=== PATIENT | female | born 1995 | race Caucasian/White ===

== ENCOUNTER 2018-08-19 19:14 | Emergency (ER) | payer OTHER ==
[2018-08-19] MEDS ORDERED: METOCLOPRAMIDE 10 MG/2mL INJ ONE (20:28)
[2018-08-19] MEDS ORDERED: NA CHLORIDE 0.9% 1,000 ML ONE (20:28)
--- NOTE | 2018-08-19 21:46 | ER ---
Nurse's Notes [facility] Name: Dominik Hall Age: 23 yrs Sex: Female : 1995 Arrival Date: 08/19/2018 Time: 19:17 Bed 23 Private MD: Romel Macedo Diagnosis: Headache Presentation: 08/19 19:30 Presenting complaint: Patient states: "I have a horrible headache. I know there is only jd3 certain things you can give me because I am 17 weeks , but I am having a lot of pain. It hurts worse and adds more pressure to turn my head or stand up or sit down. It is sensitive to light and making very nauseous.". Transition of care: patient was not received from another setting of care. Onset of symptoms was August 19, 2018. Risk Assessment: Do you want to hurt yourself or someone else? Patient reports no desire to harm self or others. Initial Sepsis Screen: Does the patient meet any 2 criteria? No. Patient's initial sepsis screen is negative. Does the patient have a suspected source of infection? No. Patient's initial sepsis screen is negative. Care prior to arrival: None. 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 - Social history:: Smoking status: Patient/guardian denies using tobacco. - Ebola Screening: : Patient negative for fever greater than or equal to 101.5 degrees Fahrenheit, and additional compatible Ebola Virus Disease symptoms. Screenin:35 Abuse screen: Denies threats or abuse. Denies injuries from another. Nutritional ca1 screening: No deficits noted. Tuberculosis screening: No symptoms or risk factors identified. Fall Risk None identified. Assessment: 19:35 General: Appears in no apparent distress. uncomfortable, Behavior is calm, cooperative, ca1 appropriate for age. Pain: Complains of pain in face and scalp Pain currently is 9 out of 10 on a pain scale. Pain began 2-3 days ago. Neuro: Level of Consciousness is awake, alert, obeys commands, Oriented to person, place, time, situation, Reports blurred vision headache in left photophobia. Cardiovascular: Heart tones S1 S2 present Capillary refill < 3 seconds Patient's skin is warm and dry. Respiratory: Airway is patent Respiratory effort is even, unlabored, Respiratory pattern is regular, symmetrical, Breath sounds are clear bilaterally. GI: Abdomen is round non-distended, Bowel sounds present X 4 quads. Abd is soft and non tender X 4 quads. : No deficits noted. No signs and/or symptoms were reported regarding the genitourinary system. EENT: No deficits noted. No signs and/or symptoms were reported regarding the EENT system. Derm: Skin is intact, is healthy with good turgor, Skin is pink, warm \\T\\ dry. Musculoskeletal: Circulation, motion, and sensation intact. Capillary refill < 3 seconds. 20:31 Reassessment: Patient appears in no apparent distress at this time. Patient and/or ca1 family updated on plan of care and expected duration. Pain level reassessed. Patient is alert, oriented x 3, equal unlabored respirations, skin warm/dry/pink. 21:24 Reassessment: Patient appears in no apparent distress at this time. Patient is alert, ca1 oriented x 3, equal unlabored respirations, skin warm/dry/pink. Ambulated to restroom. Steady gait, no complaints of dizziness at this time Patient states feeling better. 21:56 Reassessment: Patient appears in no apparent distress at this time. Patient is alert, ca1 oriented x 3, equal unlabored respirations, skin warm/dry/pink. Patient states feeling better. Vital Signs: 19:34 BP 129 / 83; Pulse 90; Resp 17 S; Temp 98.3(O); Pulse Ox 99% on R/A; Weight 104.33 kg jd3 (R); Height 5 ft. 6 in. (167.64 cm) (R); Pain 9/10; 20:31 BP 124 / 71; Pulse 83; Resp 17 S; Temp 98.1(O); Pulse Ox 99% on R/A; ca1 21:31 BP 124 / 84; Pulse 81; Resp 17 S; Temp 98.2(O); Pulse Ox 100% on R/A; ca1 19:34 Body Mass Index 37.12 (104.33 kg, 167.64 cm) jd3 ED Course: 19:17 Patient arrived in ED. es 19:18 Romel Macedo DO is Private Physician. es 19:33 Triage completed. jd3 19:35 Arm band placed on. jd3 19:35 Patient has correct armband on for positive identification. Placed in gown. Bed in low ca1 position. Call light in reach. Side rails up X 1. Pulse ox on. NIBP on. Door closed. Noise minimized. Lights dimmed. Warm blanket given. 19:40 Rivka Gonzales RN is Primary Nurse. ca1 19:42 Rosendo Bowen PA is PHCP. [facility] 19:42 Cole Ye MD is Attending Physician. [facility] 20:25 No provider procedures requiring assistance completed. Inserted saline lock: 20 gauge ca1 in right antecubital area, using aseptic technique. 21:45 Sunil Strong MD is Referral Physician. [facility] 21:57 IV discontinued, intact, bleeding controlled, No redness/swelling at site. Pressure ca1 dressing applied. Administered Medications: 20:26 Drug: NS 0.9% 1000 ml Route: IV; Rate: 1 bolus; Site: right antecubital; ca1 21:40 Follow up: Urine output 290 ml; IV Status: Completed infusion ca1 20:26 Drug: Reglan 10 mg Route: IVP; Site: right antecubital; ca1 20:40 Follow up: Response: No adverse reaction; Marked relief of symptoms ca1 Output: 21:40 Urine: 290ml; Total: 290ml. ca1 Outcome: 21:45 Discharge ordered by . [facility] 21:57 Discharged to home ambulatory. ca1 21:57 Condition: stable 21:57 Discharge instructions given to patient, Instructed on discharge instructions, follow up and referral plans. Demonstrated understanding of instructions, follow-up care. 21:58 Patient left the ED. ca1 Signatures: Rosendo Bowen PA PA jmm Salyer, Edna es Davies, Jonathon, RN RN j Rivka Gonzales RN RN ca1
--- NOTE | 2018-08-19 21:46 | EDPHYS ---
Physician Documentation [facility] Name: Dominik Hall Age: 23 yrs Sex: Female : 1995 Arrival Date: 08/19/2018 Time: 19:17 Bed 23 Private MD: Romel Macedo Physician Cole Ye HPI: 08/19 20:04 This 23 yrs old Female presents to ER via Ambulatory with complaints of HEAD jmm PRESSURE. 20:04 The patient complains of pain to the forehead, right eye and left eye. The patient jmm describes the headache as aching. Onset: The symptoms/episode began/occurred gradually, 2 day(s) ago. Associated signs and symptoms: Pertinent positives: nausea, Photophobia Pertinent negatives: fever. This is a 23 year old female with a history of asthma that present to the ED with complaints of a frontal headache described as aching and pressure. Patient complains of nausea and photophobia. Patient has had similar episodes in the past. Headache is gradual. Patient denies fever. Patient has taken otc medication with no relief. . 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 - Social history:: Smoking status: Patient/guardian denies using tobacco. - Ebola Screening: : Patient negative for fever greater than or equal to 101.5 degrees Fahrenheit, and additional compatible Ebola Virus Disease symptoms. ROS: 20:04 Constitutional: Negative for fever, chills, and weight loss, Cardiovascular: Negative jmm for chest pain, palpitations, and edema, Respiratory: Negative for shortness of breath, cough, wheezing, and pleuritic chest pain. 20:04 Abdomen/GI: Positive for nausea. 20:04 Neuro: Positive for headache. 20:04 All other systems are negative. Exam: 20:04 Head/Face: atraumatic. Eyes: EOMI, no conjunctival erythema appreciated ENT: Moist jmm Mucus Membranes Neck: Trachea midline, Supple Chest/axilla: Normal chest wall appearance and motion. Cardiovascular: Regular rate and rhythm. No edema appreciated Respiratory: Normal respirations, no respiratory distress appreciated Abdomen/GI: Non distended, soft Back: Normal ROM Skin: General appearance color normal MS/ Extremity: Moves all extremities, no obvious deformities appreciated, no edema noted to the lower extremities Neuro: Awake and alert, normal gait Psych: Behavior is normal, Mood is normal, Patient is cooperative and pleasant 20:04 Constitutional: The patient appears alert, awake, uncomfortable. Vital Signs: 19:34 BP 129 / 83; Pulse 90; Resp 17 S; Temp 98.3(O); Pulse Ox 99% on R/A; Weight 104.33 kg jd3 (R); Height 5 ft. 6 in. (167.64 cm) (R); Pain 9/10; 20:31 BP 124 / 71; Pulse 83; Resp 17 S; Temp 98.1(O); Pulse Ox 99% on R/A; ca1 21:31 BP 124 / 84; Pulse 81; Resp 17 S; Temp 98.2(O); Pulse Ox 100% on R/A; ca1 19:34 Body Mass Index 37.12 (104.33 kg, 167.64 cm) jd3 MDM: 20:04 Patient medically screened. tanesha 21:43 Data reviewed: vital signs, nurses notes. Counseling: I had a detailed discussion with tanesha the patient and/or guardian regarding: the historical points, exam findings, and any diagnostic results supporting the discharge/admit diagnosis, the need for outpatient follow up, to return to the emergency department if symptoms worsen or persist or if there are any questions or concerns that arise at home. ED course: Headache is relieved in the ED. Patient is alert and non toxic in appearance in the ED. I do not suspect SAH or meningitis. Patient is advised to follow up with Neurology for further evaluation and otherwise given strict return precautions. Patient understood and agrees with the plan of care. . 08/19 20:11 Order name: IV Saline Lock; Complete Time: 20:25 ca1 Administered Medications: 20:26 Drug: NS 0.9% 1000 ml Route: IV; Rate: 1 bolus; Site: right antecubital; ca1 21:40 Follow up: Urine output 290 ml; IV Status: Completed infusion ca1 20:26 Drug: Reglan 10 mg Route: IVP; Site: right antecubital; ca1 20:40 Follow up: Response: No adverse reaction; Marked relief of symptoms ca1 Disposition: 08/19/18 21:45 Discharged to Home. Impression: Headache. - Condition is Stable. - Discharge Instructions: Migraine Headache. - Medication Reconciliation Form, Thank You Letter, Antibiotic Education, Prescription Opioid Use form. - Follow up: Sunil Strong MD; When: 2 - 3 days; Reason: Recheck today's complaints, Continuance of care, Re-evaluation by your physician. Addendum: 08/22/2018 07:03 Co-signature as Attending Physician, Cole Ye MD I agree with the assessment and k dr plan of care. Signatures: Cole Ye MD MD kdr Mickail, Joel, PA PA jmm Davies, Jonathon, RN RN jd3 Rivka Gonzales RN RN ca1 Corrections: (The following items were deleted from the chart) 08/19 21:58 21:45 08/19/2018 21:45 Discharged to Home. Impression: Headache. Condition is Stable. ca1 Forms are Medication Reconciliation Form, Thank You Letter, Antibiotic Education, Prescription Opioid Use. Follow up: Sunil Strong; When: 2 - 3 days; Reason: Recheck today's complaints, Continuance of care, Re-evaluation by your physician. scott
[2018-08-19 23:22] VITALS: BP 124/84; TEMP 98.2; O2SAT 100
== END 2018-08-19 21:58 | disposition home or self-care (01) ==
LOC: ER 19:14
DX: O26.892 Other specified pregnancy related conditions, second trimester (principal); R51 Headache; F90.9 Attention-deficit hyperactivity disorder, unspecified type; Z3A.17 17 weeks gestation of pregnancy
CPT/HCPCS: 96361; 96374; 99284; J2765; J7030

== ENCOUNTER 2019-02-23 21:51 | Emergency (ER) | payer OTHER ==
--- OUTSIDE RECORDS SUMMARY | 2019-02-23 21:56 | XMS REPORT | Summary of Care ---
:1995 Author Organization [facility] Address [address] [place] [id number] Care Team Providers Name Role Phone [facility] Encounter Details Date Type Department Care Team Description 02/14/2019 Encounter Allergies Active Allergy Reactions Severity Noted Date Comments Adhesive Rash Low 01/19/2019 Skin reaction to adhesive from epidural tape documented as of this encounter (statuses as of 02/14/2019) Medications Medication Sig Dispensed Refills Start Date End Date Status buPROPion XL Take 1 tablet by 15 tablet 0 01/16/2019 Active (WELLBUTRIN XL) 300 mouth daily. mg 24 hr tabletIndications: Other depression vitamin w/FA Take 1 tablet by 100 tablet 3 01/20/2019 Active tabletIndications: mouth daily. Status post tubal ligation docusate calcium 240 Take 1 capsule by 60 capsule 1 01/20/2019 Active mg mouth once daily capsuleIndications: as needed for Status post tubal Constipation. ligation ferrous sulfate 325 Take 1 tablet by 60 tablet 2 01/20/2019 Active mg (65 mg iron) mouth 2 (two) tabletIndications: times daily. Status post tubal ligation ibuprofen 600 mg Take 1 tablet by 60 tablet 1 01/20/2019 Active tabletIndications: mouth every 6 Status post tubal (six) hours as ligation needed for Pain (scale 1-3) or Pain (scale 4-6) (Pain). Take with food or milk. HYDROcodone-acetamino Take 1 tablet by 20 tablet 0 01/20/2019 Active phen 5-325 mg mouth every 6 tabletIndications: (six) hours as Status post tubal needed for Pain ligation (scale 7-10). documented as of this encounter (statuses as of 02/14/2019) Active Problems Problem Noted Date care and examination of lactating mother 02/09/2019 History of tubal ligation 01/20/2019 History of asthma 01/20/2019 Anemia of mother in , antepartum 01/05/2019 Other depression 07/06/2018 Obesity in 06/08/2018 documented as of this encounter (statuses as of 02/14/2019) Resolved Problems Problem Noted Date Resolved Date (spontaneous vaginal delivery) 01/20/2019 02/09/2019 Single live 01/20/2019 02/09/2019 38 weeks gestation of 01/18/2019 02/09/2019 Uterine contractions during 01/03/2019 02/09/2019 contractions 01/01/2019 02/09/2019 Vaginal bleeding 01/01/2019 02/09/2019 36 weeks gestation of 01/01/2019 02/09/2019 Pain of round ligament affecting , antepartum 10/26/2018 02/09/2019 Abnormal maternal glucose tolerance, antepartum 10/25/2018 02/09/2019 Overview: Passed 3hr gtt Echogenic bowel of fetus 10/05/2018 02/09/2019 Overview: Echogenic bowel was present. A detailed anatomy scn will be scheduled. 10/21/18 Supervision of high-risk 06/08/2018 02/09/2019 Multiparity 06/08/2018 02/09/2019 Obesity (BMI 30-39.9) 12/10/2016 06/08/2018 documented as of this encounter (statuses as of 02/14/2019) Immunizations Name Administration Dates Next Due Tdap 11/23/2018 documented as of this encounter Social History Tobacco Use Types Packs/Day Years Used Date Never Smoker Smokeless Tobacco: Never Used Alcohol Use Drinks/Week oz/Week Comments No Sex Assigned at Date Recorded Not on file Job Start Date Occupation Industry Not on file Not on file Not on file Travel History Travel Start Travel End No recent travel history available. documented as of this encounter Last Filed Vital Signs Not on filedocumented in this encounter Plan of Treatment Date Type Specialty Care Team Description 03/02/2019 Office Visit [facility] Jessy Greer, WHCNP [address] [place] [address] [phone] Health Maintenance Due Date Last Done Comments PAP SMEAR 03/17/2019 Postponed from 2017 ( or ) HPV VACCINES (1 - Female 01/02/2020 Postponed from 05/30/2011 3-dose series) ( or ) CHLAMYDIA SCREENING 01/05/2020 01/04/2019, 01/01/2019, 07/06/2018 MENINGOCOCCAL B VACCINES (1 01/11/2020 Postponed from 2006 of 2 - Risk Bexsero 2-dose (Refused) series) INFLUENZA VACCINE (#1) 2020 Postponed from 11/20/2018 (Refused) DTaP,Tdap,and Td Vaccines (2 11/23/2028 11/23/2018 - Td) MENINGOCOCCAL VACCINE Aged Out No longer eligible based on patient's age to complete this topic PNEUMOCOCCAL 0-64 YEARS Aged Out No longer eligible based COMBINED SERIES on patient's age to complete this topic documented as of this encounter Results Not on filedocumented in this encounter Insurance Payer Benefit Plan / Subscriber ID Effective Phone Address Type Group [facility] [employer] xxxxxxxxx 2018-[address] Medicaid HEALTH CHOICE - HEALTH CHOICE nt [id number] MANAGED MEDICAID [place], [place] [phone] documented as of this encounter Advance Directives Name Relationship Healthcare Agent Communication Relationship Delvin Hauser Life Partner Primary healthcare agent
[2019-02-23] MEDS ORDERED: NA CHLORIDE 0.9% 1,000 ML ONE (23:02)
[2019-02-23] MEDS ORDERED: KETOROLAC 30 MG/ML INJ ONE (23:02)
[2019-02-23 23:03] LABS: Absolute Lymphocytes (CBC) 3.7 K/uL (0.7-4.9); Basophils % 0.5 % (0-1.3); MPV 7.9 fL (7.6-11.3); RBC Red Blood Cell Count 4.26 M/uL (3.86-4.86)
[2019-02-23 23:06] LABS: Urine Blood 2+ (NEG); Urine Glucose NEGATIVE (NEG); Urine Protein NEGATIVE (NEG); Urine Specific Gravity >1.030 (1.005-1.030)
[2019-02-23 23:30] LABS: ALT/SGPT 50 U/L (12-78); AST/SGOT 27 U/L (15-37); Albumin 3.4 g/dL (3.4-5.0); Alkaline Phosphatase 80 U/L (45-117); BUN Blood Urea Nitrogen 10 mg/dL (7-18); Bicarbonate 30 mmol/L (21-32); Bilirubin Direct < 0.1 mg/dL (0-0.2); Bilirubin Total 0.2 mg/dL (0.2-1.0); Glucose Level 92 mg/dL (74-106); Lipase 123 U/L (73-393); Potassium 4.1 mmol/L (3.5-5.1); Protein, Total 7.5 g/dL (6.4-8.2); Sodium Level 144 mmol/L (136-145)
[2019-02-23] MEDS ORDERED: FENTANYL CITR 100 MCG/2 ML ONE (23:54)
--- NOTE | 2019-02-24 02:40 | ER ---
Nurse's Notes [facility] Name: Dominik Hall Age: 23 yrs Sex: Female : 1995 Arrival Date: 02/23/2019 Time: 21:52 Bed 6 Private MD: Diagnosis: Cellulitis of abdominal wall Presentation: 02/23 21:58 Presenting complaint: Patient states: I had a tubal on Jan 19 and today noticed aa1 redness and swelling to the incision site. Transition of care: patient was not received from another setting of care. Onset of symptoms was February 23, 2019. Risk Assessment: Do you want to hurt yourself or someone else? Patient reports no desire to harm self or others. Initial Sepsis Screen: Does the patient meet any 2 criteria? No. Patient's initial sepsis screen is negative. Does the patient have a suspected source of infection? No. Patient's initial sepsis screen is negative. Care prior to arrival: None. 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 - Social history:: Smoking status: Patient/guardian denies using tobacco, never smoked, Patient uses alcohol, but reports only rare drinking. - Ebola Screening: : Patient negative for fever greater than or equal to 101.5 degrees Fahrenheit, and additional compatible Ebola Virus Disease symptoms Patient denies exposure to infectious person Patient denies travel to an Ebola-affected area in the 21 days before illness onset. Screenin:34 Abuse screen: Denies threats or abuse. Denies injuries from another. Nutritional ak1 screening: No deficits noted. Tuberculosis screening: No symptoms or risk factors identified. Fall Risk None identified. Assessment: 22:35 General: Appears in no apparent distress. Behavior is calm, cooperative, appropriate ak1 for age. Pain: Complains of pain in umbilical area Quality of pain is described as sharp, throbbing, Pain began 1 day ago. Neuro: Level of Consciousness is awake, alert, obeys commands, Oriented to person, place, time, situation, Decal Maker are equal bilaterally Moves all extremities. Full function Gait is steady, Speech is normal. Cardiovascular: No deficits noted. Respiratory: Airway is patent Respiratory effort is even, unlabored, Respiratory pattern is regular, Breath sounds are clear bilaterally. GI: Abdomen is round non-distended, Bowel sounds present X 4 quads. pt reports pain at incision site. pt 5 weeks s/p tubal ligation sx at [facility]. area at umbilicus is reddened. : No signs and/or symptoms were reported regarding the genitourinary system. EENT: No signs and/or symptoms were reported regarding the EENT system. Derm: No signs and/or symptoms reported regarding the dermatologic system. Musculoskeletal: No signs and/or symptoms reported regarding the musculoskeletal system. 22:38 Reassessment: pt stated she has an abd hernia at the same location as the pain. pt ak1 stated she noticed the pain this morning and redness later in the afternoon. 22:39 Reassessment: pt states she is breast feeding at home. ak1 02/24 00:21 Reassessment: Patient appears in no apparent distress at this time. No changes from ak1 previously documented assessment. 02:00 Reassessment: Patient appears in no apparent distress at this time. Patient is alert, rr5 oriented x 3, equal unlabored respirations, skin warm/dry/pink. no complaints made, awaiting for CT result. 03:09 Reassessment: Patient appears in no apparent distress at this time. Patient is alert, rr5 oriented x 3, equal unlabored respirations, skin warm/dry/pink. discharge instruction given and explained without complaints made. Vital Signs: 02/23 22:00 BP 148 / 88; Pulse 75; Resp 16; Temp 98.2; Pulse Ox 99% ; Weight 103.42 kg; Height 5 aa1 ft. 6 in. (167.64 cm); Pain 4/10; 22:34 BP 133 / 74; Pulse 83; Resp 16; Temp 98.6(O); Pulse Ox 100% on R/A; Pain 4/10; ak1 02/24 00:21 BP 106 / 66; Pulse 80; Resp 16; Temp 98.5; Pulse Ox 100% on R/A; ak1 00:58 BP 120 / 67; Pulse 84; Resp 16; Pulse Ox 98% on R/A; ak1 02:00 BP 112 / 70; Pulse 71; Resp 19; Pulse Ox 98% on R/A; rr5 03:09 BP 106 / 61; Pulse 69; Resp 16; Temp 98.5; Pulse Ox 99% ; rr5 12 22:00 Body Mass Index 36.80 (103.42 kg, 167.64 cm) aa1 ED Course: 02/23 21:52 Patient arrived in ED. as 21:59 Triage completed. aa1 22:02 Arm band placed on right wrist. aa1 22:27 Chayito Herron, RN is Primary Nurse. ak1 22:34 Patient has correct armband on for positive identification. Bed in low position. Call ak1 light in reach. Side rails up X 1. Pulse ox on. NIBP on. Warm blanket given. 22:37 Maria Eugenia Brice FNP-C is PHCP. snw 22:37 Wale Medeiros MD is Attending Physician. snw 23:00 Radiology exam delayed due to lab results not completed at this time. (BUN/Creatinine) nj test not completed at this time. 23:04 Initial lab(s) drawn, by ED staff, sent to lab. Inserted saline lock: 20 gauge in right ak1 antecubital area, using aseptic technique. ,using aseptic technique. placed by Zuleyka Blood collected. 02/24 01:42 CT Abd/Pelvis - IV Contrast Only In Process Unspecified. EDMS Administered Medications: 02/23 23:03 Drug: TORadol 30 mg Route: IVP; Site: right antecubital; nc1 02/24 01:18 Follow up: Response: No adverse reaction [facility] 02/23 23:04 Drug: NS 0.9% 1000 ml Route: IV; Rate: 1 bolus; Site: right antecubital; ak1 02/24 00:10 Follow up: IV Status: Completed infusion; IV Intake: 1000ml [facility] 02/23 23:54 Drug: fentaNYL (PF) 25 mcg {Note: rass 0.} Route: IVP; Site: right antecubital; rr5 02/24 01:18 Follow up: Response: No adverse reaction; Pain is decreased ak1 02:59 Not Given (other intervention used): Bactrim (160 mg-800 mg (DS) 1 tablet PO once snw 03:08 Drug: Clindamycin 300 mg Route: PO; rr5 03:08 Follow up: Response: Medication administered at discharge. rr5 Intake: 00:10 IV: 1000ml; Total: 1000ml. ak1 Outcome: 02:39 Discharge ordered by snw 03:11 Patient left the ED. rr5 Signatures: Dispatcher [employer] EDHannah Wang, RN RN aa1 Maria Eugenia Brice, PRINTING ROLLER POLISHER-C PRINTING ROLLER POLISHER-Radha Rodney Amber RN RN ak1 Kirt Saenz Raymond, RN RN rr5 Corrections: (The following items were deleted from the chart) 02/23 22:02 22:02 EKG completed in triage. Results shown to MD. aa1 aa1
--- NOTE | 2019-02-24 02:40 | EDPHYS ---
Physician Documentation [facility] Name: Dominik Hall Age: 23 yrs Sex: Female : 1995 Arrival Date: 02/23/2019 Time: 21:52 Bed 6 Private MD: ED Physician Wale Medeiros HPI: 02/24 01:28 This 23 yrs old Female presents to ER via Ambulatory with complaints of snw Abdominal Pain. 01:28 The patient presents with abdominal pain over tubal incision. Onset: The snw symptoms/episode began/occurred suddenly, 2 day(s) ago, and became worse and became persistent. The symptoms do not radiate. Associated signs and symptoms: Pertinent positives: mild erythema. The symptoms are described as burning. Severity of pain: At its worst the pain was moderate severe in the emergency department the pain is unchanged. The patient has not experienced similar symptoms in the past. It is unknown whether or not the patient has recently seen a physician. 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 - Social history:: Smoking status: Patient/guardian denies using tobacco, never smoked, Patient uses alcohol, but reports only rare drinking. - Ebola Screening: : Patient negative for fever greater than or equal to 101.5 degrees Fahrenheit, and additional compatible Ebola Virus Disease symptoms Patient denies exposure to infectious person Patient denies travel to an Ebola-affected area in the 21 days before illness onset. ROS: 23:53 Constitutional: Negative for fever, chills, and weight loss, Eyes: Negative for injury, snw pain, redness, and discharge, ENT: Negative for injury, pain, and discharge, Neck: Negative for injury, pain, and swelling, Cardiovascular: Negative for chest pain, palpitations, and edema, Respiratory: Negative for shortness of breath, cough, wheezing, and pleuritic chest pain, Abdomen/GI: positive for abdominal pain at tubal incision denies nausea, vomiting, diarrhea, and constipation, Back: Negative for injury and pain, : Negative for injury, bleeding, discharge, and swelling, MS/Extremity: Negative for injury and deformity, Neuro: Negative for headache, weakness, numbness, tingling, and seizure. 23:53 Skin: Positive for tender around tubal incision. Exam: 23:51 Constitutional: This is a well developed, well nourished patient who is awake, alert, snw and in no acute distress. Head/Face: Normocephalic, atraumatic. Eyes: Pupils equal round and reactive to light, extra-ocular motions intact. Lids and lashes normal. Conjunctiva and sclera are non-icteric and not injected. Cornea within normal limits. Periorbital areas with no swelling, redness, or edema. ENT: Nares patent. No nasal discharge, no septal abnormalities noted. Tympanic membranes are normal and external auditory canals are clear. Oropharynx with no redness, swelling, or masses, exudates, or evidence of obstruction, uvula midline. Mucous membranes moist. Neck: Trachea midline, no thyromegaly or masses palpated, and no cervical lymphadenopathy. Supple, full range of motion without nuchal rigidity, or vertebral point tenderness. No Meningismus. Chest/axilla: Normal chest wall appearance and motion. Nontender with no deformity. No lesions are appreciated. Cardiovascular: Regular rate and rhythm with a normal S1 and S2. No gallops, murmurs, or rubs. Normal PMI, no JVD. No pulse deficits. Respiratory: Lungs have equal breath sounds bilaterally, clear to auscultation and percussion. No rales, rhonchi or wheezes noted. No increased work of breathing, no retractions or nasal flaring. Back: No spinal tenderness. No costovertebral tenderness. Full range of motion. Skin: Warm, dry with normal turgor. Normal color with no rashes, no lesions, and no evidence of cellulitis. MS/ Extremity: Pulses equal, no cyanosis. Neurovascular intact. Full, normal range of motion. Neuro: Awake and alert, GCS 15, oriented to person, place, time, and situation. Cranial nerves II-XII grossly intact. Motor strength 5/5 in all extremities. Sensory grossly intact. Cerebellar exam normal. Normal gait. Psych: Awake, alert, with orientation to person, place and time. Behavior, mood, and affect are within normal limits. 23:51 Abdomen/GI: Inspection: abdomen appears normal, Bowel sounds: normal, Palpation: moderate abdominal tenderness, in all quadrants, in the superior to suprapubic area superior to 3 cm healed incision from tubal 5 weeks ago, faint erythema to skin at tender area. Vital Signs: 22:00 BP 148 / 88; Pulse 75; Resp 16; Temp 98.2; Pulse Ox 99% ; Weight 103.42 kg; Height 5 aa1 ft. 6 in. (167.64 cm); Pain 4/10; 22:34 BP 133 / 74; Pulse 83; Resp 16; Temp 98.6(O); Pulse Ox 100% on R/A; Pain 4/10; ak1 02/24 00:21 BP 106 / 66; Pulse 80; Resp 16; Temp 98.5; Pulse Ox 100% on R/A; ak1 00:58 BP 120 / 67; Pulse 84; Resp 16; Pulse Ox 98% on R/A; ak1 02:00 BP 112 / 70; Pulse 71; Resp 19; Pulse Ox 98% on R/A; rr5 03:09 BP 106 / 61; Pulse 69; Resp 16; Temp 98.5; Pulse Ox 99% ; rr5 02/23 22:00 Body Mass Index 36.80 (103.42 kg, 167.64 cm) aa1 MDM: 02/23 22:39 Patient medically screened. [facility] 02/24 01:27 Data reviewed: vital signs, nurses notes. Data interpreted: Pulse oximetry: on room air snw is 98 %. Interpretation: normal. Counseling: I had a detailed discussion with the patient and/or guardian regarding: the historical points, exam findings, and any diagnostic results supporting the discharge/admit diagnosis, lab results, radiology results, the need for outpatient follow up, to return to the emergency department if symptoms worsen or persist or if there are any questions or concerns that arise at home. Special discussion: Based on the history and exam findings, there is no indication for further emergent testing or inpatient evaluation. I discussed with the patient/guardian the need to see the primary care provider for further evaluation of the symptoms. 02/23 22:47 Order name: Basic Metabolic Panel; Complete Time: 23:38 aa1 02/23 22:47 Order name: CBC with Diff; Complete Time: 23:23 aa1 02/23 22:47 Order name: Creatinine for Radiology; Complete Time: 23:38 aa1 02/23 22:47 Order name: Hepatic Function; Complete Time: 23:38 aa02/23 22:47 Order name: Lipase; Complete Time: 23:38 aa1 02/23 23:00 Order name: Urine Dipstick--Ancillary (enter results); Complete Time: 23:07 [facility] 02/23 22:47 Order name: IV Saline Lock; Complete Time: 22:57 aa1 02/23 22:47 Order name: CT Abd/Pelvis - IV Contrast Only aa02/23 23:00 Order name: Urine --Ancillary (enter results); Complete Time: 23:07 [facility] 02/23 22:47 Order name: Labs collected and sent; Complete Time: 22:58 aa1 02/23 22:47 Order name: Urine Dipstick-Ancillary (obtain specimen); Complete Time: 22:57 aa 02/23 22:47 Order name: Urine Test (obtain specimen); Complete Time: 22:57 aa Administered Medications: 02/23 23:03 Drug: TORadol 30 mg Route: IVP; Site: right antecubital; ak1 02/24 01:18 Follow up: Response: No adverse reaction [facility] 02/23 23:04 Drug: NS 0.9% 1000 ml Route: IV; Rate: 1 bolus; Site: right antecubital; ak1 02/24 00:10 Follow up: IV Status: Completed infusion; IV Intake: 1000ml [facility] 02/23 23:54 Drug: fentaNYL (PF) 25 mcg {Note: rass 0.} Route: IVP; Site: right antecubital; rr5 02/24 01:18 Follow up: Response: No adverse reaction; Pain is decreased ak1 02:59 Not Given (other intervention used): Bactrim (160 mg-800 mg (DS) 1 tablet PO once snw 03:08 Drug: Clindamycin 300 mg Route: PO; rr5 03:08 Follow up: Response: Medication administered at discharge. rr5 Disposition: 07:40 Co-signature as Attending Physician, Wale Medeiros MD I agree with the assessment and jessica plan of care. Disposition: 02/24/19 02:39 Discharged to Home. Impression: Cellulitis of abdominal wall. - Condition is Stable. - Discharge Instructions: Cellulitis, Adult, Heat Therapy. - Prescriptions for Clindamycin HCl 300 mg Oral Capsule - take 1 capsule by ORAL route every 8 hours for 10 days; 30 capsule. Mobic 7.5 mg Oral Tablet - take 1 tablet by ORAL route once daily take with food; 20 tablet. - Medication Reconciliation Form, Thank You Letter, Antibiotic Education, Prescription Opioid Use form. - Follow up: Private Physician; When: 2 - 3 days; Reason: Recheck today's complaints, Continuance of care, Re-evaluation by your physician. Follow up: Emergency Department; When: As needed; Reason: Worsening of condition. Signatures: Dispatcher [employer] Hannah Fermin RN RN aa1 Wale Medeiros MD MD cha Therrien, Shelly, FILAMENT SHAPER-C FILAMENT SHAPER-Csnw Chayito Herron RN RN ak1 Paco Webster RN RN rr5 Corrections: (The following items were deleted from the chart) 02/23 23:56 23:51 Abdomen/GI: Inspection: abdomen appears normal, Bowel sounds: normal, Palpation: snw moderate abdominal tenderness, in all quadrants, in the superior to suprapubic area superior to 3 cm healed incision from tubal 5 weeks ago, snw 02/24 03:11 02:39 02/24/2019 02:39 Discharged to Home. Impression: Cellulitis of abdominal wall. rr5 Condition is Stable. Forms are Medication Reconciliation Form, Thank You Letter, Antibiotic Education, Prescription Opioid Use. Follow up: Private Physician; When: 2 - 3 days; Reason: Recheck today's complaints, Continuance of care, Re-evaluation by your physician. Follow up: Emergency Department; When: As needed; Reason: Worsening of condition. snw
[2019-02-24] MEDS ORDERED: CLINDAMYCIN HCL 150 MG CAP ONE (03:05)
[2019-02-24 04:42] VITALS: TEMP 98.5
[2019-02-24 04:48] VITALS: BP 106/61; O2SAT 99
--- NOTE | 2019-02-24 13:01 | RAD REPORT ---
EXAM DESCRIPTION: CT Abdomen and Pelvis With Intravenous Contrast CLINICAL HISTORY: The patient is 23 years old and is Female; Abd pain;Abdominal distention TECHNIQUE: Axial computed tomography images of the abdomen and pelvis with intravenous contrast. S agittal and coronal reformatted images were created and reviewed. This CT exam was performed using one or more of the following dose reduction techniques: automated exposure control, adjustment of t he mA and/or kV according to patient size, and/or use of iterative reconstruction technique. COMPARISON: No relevant prior studies available. FINDINGS: LUNG BASES: Unremarkable. No mass. No consolidation. ABDOMEN: LIVER: Unremarkable. No mass. GALLBLADDER AND BILE DUCTS: The gallbladder is not well distended. PANCREAS: No ductal dilation. No mass. SPLEEN: Unremarkable. ADRENALS: Unremarkable. No mass. KIDNEYS AND URETERS: A punctate right intrarenal calcification is present. The kidneys enhance s ymmetrically. No hydronephrosis or hydroureter of either kidney. STOMACH AND BOWEL: Stomach is distended with food contents. The small bowel is normal in caliber . Stool is present throughout colon. There is no mucosal thickening or evidence of bowel obstruction. PELVIS: APPENDIX: No findings to suggest acute appendicitis. BLADDER: Unremarkable. No mass. REPRODUCTIVE: A 1.5 cm right ovarian cyst is present. No follow-up imaging is recommended. The u terus and left ovary normal. ABDOMEN and PELVIS: INTRAPERITONEAL SPACE: Unremarkable. No free air. No significant fluid collection. BONES/JOINTS: No acute fracture. SOFT TISSUES: Minimal fat stranding at the level of the umbilicus with fluid is present. VASCULATURE: Unremarkable. No abdominal aortic aneurysm. LYMPH NODES: Unremarkable. No enlarged lymph nodes. IMPRESSION: 1. No acute findings on this contrasted CT of the abdomen and pelvis to explain the pa tient's symptoms. 2. Minimal fluid and inflammatory fat stranding at the level of the umbilicus. Electronically signed by: Julieta Dobbs MD 02/24/2019 2:03 AM MANAGER SOUND Due to temporary technical issues with the PACS/Fluency reporting system, reports are being signed by the in house radiologist as a courtesy to ensure prompt reporting. The interpreting radiologist is f ully responsible for the content of the report.
== END 2019-02-24 03:11 | disposition home or self-care (01) ==
LOC: ER 21:51
DX: L03.311 Cellulitis of abdominal wall (principal); F90.9 Attention-deficit hyperactivity disorder, unspecified type
CPT/HCPCS: 96361; 85025; 80048; 36415; 81025; 80076; 81003; 83690; 74177; 96375; 96374; 99284; Q9967; J3010; J7030